=== PATIENT | female | born 1940 | race Caucasian/White ===

== ENCOUNTER 2022-05-18 19:22 | Emergency (ER) | payer OTHER, MEDICARE ==
[~2022-05-18 19:22] MED LIST: Sodium Chloride 0.9% 1,000 ML BAG ONE
[2022-05-18] MEDS ORDERED: Morphine 4 MG/ML VIAL ONE (20:02)
[2022-05-18 21:14] LABS: #Lymphocytes 1.4 thou/uL (1.20-3.40); #Monocytes 0.6 thou/uL (0.11-0.59); #Neutrophils 7.4 thou/uL (1.40-6.50); %Basophils 0.4 % (0.0-1.0); %Eosinophils 0.5 % (0.0-10.0); %Lymphocytes 14.5 % (21.0-51.0); %Monocytes 6.1 % (0.0-10.0); %Neutrophils 78.5 % (42.0-75.0); Hemoglobin 10.5 g/dL (12.0-16.0); Mean Corpuscular HGB CONC 34.2 g/dL (32.0-36.0); Mean Corpuscular Hemoglobin 33.4 pg (27.0-31.0); Mean Corpuscular Volume 97.5 fl (78.0-98.0); Mean Platelet Volume 8.2 fL (7.4-10.4); Platelet Count 194 10x3/uL (130-400); RBC Distribution Width 12.6 % (11.5-14.5); Red Blood Cell (RBC) Count 3.15 mill/uL (4.20-5.40); White Blood Cell (WBC) Count 9.4 10x3/uL (4.8-10.8)
[2022-05-18 21:21] LABS: Prothrombin Time 13.6 sec (12.0-14.7)
[2022-05-18 21:22] LABS: PTT 37.1 sec (22.9-36.1)
[2022-05-18 21:29] LABS: Anion Gap 17 mmol/L (10-20); BUN (Urea Nitrogen) 16 mg/dL (9.8-20.1); CK (CPK) 61 U/L (29-168); Calc. Creatinine Clearance 0 mL/min (70-130); Calcium 8.8 mg/dL (7.8-10.44); Carbon Dioxide 23 mmol/L (23-31); Chloride 96 mmol/L (98-107); Estimated GFR 62; Glucose 95 mg/dL (83-110); Potassium 3.6 mmol/L (3.5-5.1); Sodium 132 mmol/L (136-145)
[2022-05-18] MEDS ORDERED: Fentanyl 100 MCG/2 ML VIAL ONE (22:05)
[2022-05-18] MEDS ORDERED: Boostrix 0.5 ML (Tdap) VIAL (>/=7 yrs of age) ONE (22:29)
[2022-05-18 22:36] LABS: Bilirubin Negative (Negative); Blood, Urine Negative (Negative); Clarity Clear (Clear); Glucose, Urine (Dipstick) Negative (Negative); Ketone, Urine Negative (Negative); Leukocyte Negative (Negative); Nitrite Negative (Negative); Protein, Urine (Dipstick) Negative (Neg-Trace); pH, Urine 7.5 (5.0-9.0)
== END 2022-05-18 22:41 | disposition short-term general hospital (02) ==
LOC: MADERS 19:22
DX: S72.002A Fracture of unspecified part of neck of left femur, initial encounter for closed fracture (principal); S51.012A Laceration without foreign body of left elbow, initial encounter; S80.212A Abrasion, left knee, initial encounter; Z23 Encounter for immunization; W01.0XXA Fall on same level from slipping, tripping and stumbling without subsequent striking against object, initial encounter
CPT/HCPCS: 51702; 80048; 81003; 82550; 84484; 85025; 85610; 85730; 90471; 90715; 93005; 96374; 96375; G0390; J2270; J3010; J7050

== ENCOUNTER 2022-05-25 19:19 | Inpatient (IN) | payer MEDICARE ==
[2022-05-25 20:35] VITALS: BMI 22.4
[2022-05-25] MEDS ORDERED: cefTRIAXone\\ROCEPHIN 2 GM VIAL IVPB SCH (23:30)
[2022-05-25] MEDS ORDERED: Azithromycin 500 MG VIAL IVPB SCH (23:59)
[2022-05-26] MEDS: Acetaminophen 500 MG TAB PO SCH ×5 (00:05→23:44)
[2022-05-26] MEDS: cefTRIAXone\\ROCEPHIN 2 GM in Sodium Chloride 0.9% 100 ML IVPB SCH ×2 (00:41→23:36)
[2022-05-26] MEDS: Azithromycin 500 MG in Sodium Chloride 0.9% 250 ML 250 ML IVPB SCH (01:51)
[2022-05-26 05:28] LABS: Hemoglobin 10.1 g/dL (12.0-16.0); Mean Corpuscular HGB CONC 34.9 g/dL (32.0-36.0); Mean Corpuscular Volume 94.6 fl (78.0-98.0); Platelet Count 220 10x3/uL (130-400); RBC Distribution Width 14.7 % (11.5-14.5); Red Blood Cell (RBC) Count 3.05 mill/uL (4.20-5.40)
[2022-05-26 05:45] LABS: ALT (SGPT) 8 U/L (8-55); AST (SGOT) 28 U/L (5-34); Albumin 2.2 g/dL (3.4-4.8); Alkaline Phosphatase 59 U/L (40-110); Anion Gap 15 mmol/L (10-20); BUN (Urea Nitrogen) 45 mg/dL (9.8-20.1); Bilirubin, Total 0.3 mg/dL (0.2-1.2); Calc. Creatinine Clearance 35 mL/min (70-130); Calcium 9.3 mg/dL (7.8-10.44); Carbon Dioxide 19 mmol/L (23-31); Chloride 112 mmol/L (98-107); Estimated GFR 42; Globulin 2.1 g/dL (2.4-3.5); Glucose 78 mg/dL (83-110); Potassium 3.9 mmol/L (3.5-5.1); Protein, Total 4.3 g/dL (5.8-8.1); Sodium 142 mmol/L (136-145)
[2022-05-26] MEDS ORDERED: Gabapentin 100 MG CAP PO SCH (09:00)
[2022-05-26] MEDS ORDERED: Oxybutynin 5 MG TAB PO SCH (09:00)
[2022-05-26] MEDS ORDERED: Atenolol 25 MG TAB PO SCH (09:00)
[2022-05-26] MEDS: Aspirin 81 mg Enteric Coated Tablet PO SCH ×2 (09:00→20:55)
[2022-05-26] MEDS ORDERED: Polyethylene Glycol 3350 17 GM Packet PO PRN (16:22)
[2022-05-26] MEDS ORDERED: Polyethylene Glycol 3350 17 GM Packet PO SCH (16:30)
[2022-05-26] MEDS ORDERED: Aspirin 81 mg Enteric Coated Tablet PO SCH (16:45)
[2022-05-26] MEDS ORDERED: Proctozone-HC 30 GM TUBE TOP SCH (17:45)
[2022-05-27] MEDS: Azithromycin 500 MG in Sodium Chloride 0.9% 250 ML 250 ML IVPB SCH ×2 (00:17→23:31)
[2022-05-27] MEDS: Acetaminophen 500 MG TAB PO SCH ×4 (06:07→23:31)
[2022-05-27] MEDS ORDERED: Polyethylene Glycol 3350 17 GM Packet PO SCH (09:00)
[2022-05-27] MEDS: Aspirin 81 mg Enteric Coated Tablet PO SCH ×2 (09:03→23:30)
[2022-05-27] MEDS: Proctozone-HC 30 GM TUBE TOP SCH (09:03)
[2022-05-27] MEDS ORDERED: Proctozone-HC 30 GM TUBE TOP SCH (17:15)
[2022-05-27] MEDS: cefTRIAXone\\ROCEPHIN 2 GM in Sodium Chloride 0.9% 100 ML IVPB SCH (23:29)
[2022-05-28] MEDS: ALPRAZolam 0.25 MG TAB PO PRN ×2 (01:07→23:10)
[2022-05-28] MEDS: Acetaminophen 500 MG TAB PO SCH ×4 (05:35→23:10)
[2022-05-28] MEDS: Aspirin 81 mg Enteric Coated Tablet PO SCH ×2 (08:52→20:49)
[2022-05-28] MEDS: HYDROcodone/Acetaminophen 5/325 mg Tablet PO PRN (08:52)
[2022-05-28] MEDS: Proctozone-HC 30 GM TUBE TOP SCH (08:53)
[2022-05-28] MEDS ORDERED: FLU VACC QS2022-23(65YR UP)/PF 240 MCG/0.7 ML SYRINGE IM ONE (09:00)
[2022-05-28] MEDS: metroNIDAZOLE 500 MG in Premix Bag 1 BAG IVPB SCH (18:19)
[2022-05-28] MEDS: Sodium Chloride 0.9% 1,000 ML IV SCH (19:15)
[2022-05-28] MEDS: cefTRIAXone\\ROCEPHIN 2 GM in Sodium Chloride 0.9% 100 ML IVPB SCH (23:15)
[2022-05-28] MEDS: Azithromycin 500 MG in Sodium Chloride 0.9% 250 ML 250 ML IVPB SCH (23:55)
[2022-05-29] MEDS: metroNIDAZOLE 500 MG in Premix Bag 1 BAG IVPB SCH ×3 (01:46→17:51)
[2022-05-29] MEDS: Acetaminophen 500 MG TAB PO SCH ×4 (05:05→23:00)
[2022-05-29 05:15] LABS: Band 9 % (5-11); Hemoglobin 9.5 g/dL (12.0-16.0); Lymphocytes 5 % (21-51); MDiff Complete? YES; Mean Corpuscular HGB CONC 34.2 g/dL (32.0-36.0); Mean Corpuscular Hemoglobin 32.6 pg (27.0-31.0); Mean Corpuscular Volume 95.4 fl (78.0-98.0); Mean Platelet Volume 7.5 fL (7.4-10.4); Monocytes 4 % (0-10); Neutrophil 82 % (42-75); Platelet Count 185 10x3/uL (130-400); RBC Distribution Width 14.9 % (11.5-14.5); White Blood Cell (WBC) Count 25.9 10x3/uL (4.8-10.8)
[2022-05-29 05:23] LABS: ALT (SGPT) 8 U/L (8-55); AST (SGOT) 18 U/L (5-34); Albumin 2.1 g/dL (3.4-4.8); Alkaline Phosphatase 65 U/L (40-110); Anion Gap 12 mmol/L (10-20); BUN (Urea Nitrogen) 48 mg/dL (9.8-20.1); Bilirubin, Total 0.5 mg/dL (0.2-1.2); Calc. Creatinine Clearance 49 mL/min (70-130); Calcium 9.8 mg/dL (7.8-10.44); Carbon Dioxide 23 mmol/L (23-31); Chloride 110 mmol/L (98-107); Estimated GFR 61; Globulin 1.9 g/dL (2.4-3.5); Glucose 94 mg/dL (83-110); Potassium 3.5 mmol/L (3.5-5.1); Sodium 141 mmol/L (136-145)
[2022-05-29] MEDS ORDERED: Famotidine 20 MG TAB PO SCH (09:00)
[2022-05-29] MEDS: Lansoprazole 3 MG/ML ORAL SUSPENSION PER TUBE SCH (10:10)
[2022-05-29] MEDS: Aspirin 81 mg Enteric Coated Tablet PO SCH ×2 (10:11→20:20)
[2022-05-29] MEDS: HYDROcodone/Acetaminophen 5/325 mg Tablet PO PRN ×2 (10:11→20:32)
[2022-05-29] MEDS: Proctozone-HC 30 GM TUBE TOP SCH (10:12)
[2022-05-29] MEDS: Sodium Chloride 0.9% 1,000 ML IV SCH (12:16)
[2022-05-29] MEDS: ALPRAZolam 0.25 MG TAB PO PRN (17:50)
[2022-05-29] MEDS: cefTRIAXone\\ROCEPHIN 2 GM in Sodium Chloride 0.9% 100 ML IVPB SCH (22:53)
[2022-05-29] MEDS: Azithromycin 500 MG in Sodium Chloride 0.9% 250 ML 250 ML IVPB SCH (23:15)
[2022-05-30] MEDS: metroNIDAZOLE 500 MG in Premix Bag 1 BAG IVPB SCH ×3 (02:58→17:17)
[2022-05-30] MEDS: Acetaminophen 500 MG TAB PO SCH ×4 (05:15→23:37)
[2022-05-30] MEDS: ALPRAZolam 0.25 MG TAB PO PRN (05:23)
[2022-05-30] MEDS: Aspirin 81 mg Enteric Coated Tablet PO SCH ×2 (09:36→21:42)
[2022-05-30] MEDS: Lansoprazole 3 MG/ML ORAL SUSPENSION PER TUBE SCH (09:37)
[2022-05-30] MEDS: Proctozone-HC 30 GM TUBE TOP SCH (09:41)
[2022-05-30 13:59] LABS: #Lymphocytes 0.8 thou/uL (1.20-3.40); #Monocytes 0.6 thou/uL (0.11-0.59); #Neutrophils 25.2 thou/uL (1.40-6.50); %Basophils 0.2 % (0.0-1.0); %Eosinophils 0.2 % (0.0-10.0); %Monocytes 2.3 % (0.0-10.0); %Neutrophils 94.3 % (42.0-75.0); Hemoglobin 9.3 g/dL (12.0-16.0); Mean Corpuscular HGB CONC 33.5 g/dL (32.0-36.0); Mean Corpuscular Hemoglobin 32.5 pg (27.0-31.0); Mean Corpuscular Volume 97.1 fl (78.0-98.0); Platelet Count 213 10x3/uL (130-400); RBC Distribution Width 14.6 % (11.5-14.5); Red Blood Cell (RBC) Count 2.85 mill/uL (4.20-5.40); White Blood Cell (WBC) Count 26.8 10x3/uL (4.8-10.8)
[2022-05-30 14:11] LABS: Anion Gap 11 mmol/L (10-20); BUN (Urea Nitrogen) 41 mg/dL (9.8-20.1); Calc. Creatinine Clearance 57 mL/min (70-130); Calcium 9.8 mg/dL (7.8-10.44); Carbon Dioxide 23 mmol/L (23-31); Chloride 112 mmol/L (98-107); Estimated GFR 73; Glucose 81 mg/dL (83-110); Potassium 3.8 mmol/L (3.5-5.1); Sodium 142 mmol/L (136-145)
[2022-05-30] MEDS ORDERED: risperiDONE 0.5 MG TAB PO PRN (20:10)
[2022-05-30] MEDS: cefTRIAXone\\ROCEPHIN 2 GM in Sodium Chloride 0.9% 100 ML IVPB SCH (23:36)
[2022-05-31] MEDS: Azithromycin 500 MG in Sodium Chloride 0.9% 250 ML 250 ML IVPB SCH (00:28)
[2022-05-31] MEDS: metroNIDAZOLE 500 MG in Premix Bag 1 BAG IVPB SCH ×3 (02:26→17:48)
[2022-05-31] MEDS: Acetaminophen 500 MG TAB PO SCH ×3 (06:16→17:46)
[2022-05-31] MEDS: Aspirin 81 mg Enteric Coated Tablet PO SCH ×2 (09:09→20:51)
[2022-05-31] MEDS: Proctozone-HC 30 GM TUBE TOP SCH (09:10)
[2022-05-31] MEDS: Lansoprazole 3 MG/ML ORAL SUSPENSION PER TUBE SCH (09:22)
[2022-05-31] MEDS: Nystatin 500,000 UNITS/5 ML UDCUP SSW SCH ×4 (09:22→20:51)
[2022-05-31] MEDS ORDERED: risperiDONE 0.5 MG TAB PO SCH (21:00)
[2022-06-01] MEDS: Acetaminophen 500 MG TAB PO SCH ×4 (00:34→18:14)
[2022-06-01] MEDS: metroNIDAZOLE 500 MG in Premix Bag 1 BAG IVPB SCH ×3 (01:24→18:14)
[2022-06-01] MEDS: Aspirin 81 mg Enteric Coated Tablet PO SCH (08:20)
[2022-06-01] MEDS: Nystatin 500,000 UNITS/5 ML UDCUP SSW SCH ×4 (08:20→21:14)
[2022-06-01] MEDS: Lansoprazole 3 MG/ML ORAL SUSPENSION PER TUBE SCH (08:32)
[2022-06-01] MEDS: Proctozone-HC 30 GM TUBE TOP SCH (08:32)
[2022-06-01 14:28] LABS: #Lymphocytes 0.9 thou/uL (1.20-3.40); #Monocytes 1.3 thou/uL (0.11-0.59); #Neutrophils 31.2 thou/uL (1.40-6.50); %Basophils 0.1 % (0.0-1.0); %Eosinophils 0.1 % (0.0-10.0); %Lymphocytes 2.6 % (21.0-51.0); %Monocytes 3.8 % (0.0-10.0); %Neutrophils 93.4 % (42.0-75.0); Hemoglobin 8.3 g/dL (12.0-16.0); Mean Corpuscular HGB CONC 32.3 g/dL (32.0-36.0); Mean Corpuscular Hemoglobin 31.4 pg (27.0-31.0); Mean Platelet Volume 7.4 fL (7.4-10.4); Platelet Count 252 10x3/uL (130-400); RBC Distribution Width 14.7 % (11.5-14.5); Red Blood Cell (RBC) Count 2.63 mill/uL (4.20-5.40); White Blood Cell (WBC) Count 33.5 10x3/uL (4.8-10.8)
[2022-06-02] MEDS: Acetaminophen 500 MG TAB PO SCH (00:10)
[2022-06-02 01:36] LABS: #Eosinphils 0.1 thou/uL (0.0-0.7); #Lymphocytes 1.1 thou/uL (1.20-3.40); #Monocytes 1.6 thou/uL (0.11-0.59); #Neutrophils 27.1 thou/uL (1.40-6.50); %Basophils 0.1 % (0.0-1.0); %Eosinophils 0.3 % (0.0-10.0); %Lymphocytes 3.6 % (21.0-51.0); %Monocytes 5.3 % (0.0-10.0); %Neutrophils 90.7 % (42.0-75.0); Hemoglobin 7.5 g/dL (12.0-16.0); Mean Corpuscular HGB CONC 33.8 g/dL (32.0-36.0); Mean Corpuscular Hemoglobin 32.9 pg (27.0-31.0); Mean Corpuscular Volume 97.3 fl (78.0-98.0); Mean Platelet Volume 7.7 fL (7.4-10.4); Platelet Count 232 10x3/uL (130-400); Red Blood Cell (RBC) Count 2.28 mill/uL (4.20-5.40); White Blood Cell (WBC) Count 29.9 10x3/uL (4.8-10.8)
[2022-06-02] MEDS: Sodium Chloride 0.9% 250 ML IV SCH ×2 (01:43→03:05)
[2022-06-02] MEDS ORDERED: Pantoprazole 40 MG VIAL IVP SCH (01:45)
[2022-06-02] MEDS ORDERED: Sodium Chloride 0.9% 1,000 ML IV SCH (02:00)
[2022-06-02 02:59] VITALS: TEMP 97
[2022-06-02 03:00] VITALS: BP 98/62
[2022-06-02] MEDS: metroNIDAZOLE 500 MG in Premix Bag 1 BAG IVPB SCH (03:03)
== END 2022-06-02 03:00 | disposition home or self-care (01) | DRG 559 ==
LOC: MADMS 19:19 → UNDOADMIN 19:19
PROVIDERS: ADMIT Family Medicine; ATTEND Family Medicine
PROC: 30233N1 Transfusion of Nonautologous Red Blood Cells into Peripheral Vein, Percutaneous Approach (ICD-10-PCS; principal; 2022-06-02)
DX: S72.002D Fracture of unspecified part of neck of left femur, subsequent encounter for closed fracture with routine healing (principal); J18.9 Pneumonia, unspecified organism; J96.01 Acute respiratory failure with hypoxia; E46 Unspecified protein-calorie malnutrition; R78.81 Bacteremia; I10 Essential (primary) hypertension; G62.9 Polyneuropathy, unspecified; F03.90 Unspecified dementia, unspecified severity, without behavioral disturbance, psychotic disturbance, mood disturbance, and anxiety; D64.9 Anemia, unspecified; Z20.822 Contact with and (suspected) exposure to COVID-19; E86.0 Dehydration; R13.10 Dysphagia, unspecified; W19.XXXD Unspecified fall, subsequent encounter; Z88.1 Allergy status to other antibiotic agents; Z79.82 Long term (current) use of aspirin; Z79.899 Other long term (current) drug therapy; Z90.49 Acquired absence of other specified parts of digestive tract; Z68.22 Body mass index [BMI] 22.0-22.9, adult
CPT/HCPCS: 36415; 36416; 36430; 71045; 80048; 80053; 82274; 85025; 85027; 86850; 86900; 86901; 87040; 87811; C9113; J0456; J0696; J3490; J7050; P9016

== ENCOUNTER 2022-06-02 02:22 | Emergency (ER) | payer MEDICARE ==
[2022-06-02] MEDS ORDERED: Sodium Chloride 0.9% 250 ML 250 ML ONE (02:56)
[2022-06-02] MEDS ORDERED: Pantoprazole 40 MG VIAL ONE (02:56)
[2022-06-02] MEDS ORDERED: Sodium Chloride 0.9% 500 ML ONE (02:56)
[2022-06-02] MEDS ORDERED: Digoxin 0.5 MG/2 ML AMP ONE (03:40)
[2022-06-02 04:05] LABS: CKMB 5.9 ng/mL (0-6.6)
== END 2022-06-02 04:24 | disposition short-term general hospital (02) ==
LOC: MADERS 02:22
DX: K92.2 Gastrointestinal hemorrhage, unspecified (principal); D62 Acute posthemorrhagic anemia; I48.91 Unspecified atrial fibrillation; I10 Essential (primary) hypertension; F03.90 Unspecified dementia, unspecified severity, without behavioral disturbance, psychotic disturbance, mood disturbance, and anxiety; Z79.899 Other long term (current) drug therapy
CPT/HCPCS: 82553; 84484; 93005; 94760; 96365; 96375; 99292; C9113; J1160; J7030; J7050